=== PATIENT | male | born 1960 | race Caucasian/White ===

== ENCOUNTER 2023-10-30 20:41 | Inpatient (IN) | payer OTHER, SELFPAY ==
[2023-10-30] VITALS (12 sets, daily range): BP systolic 20–136; BP diastolic 60–84
--- NOTE | 2023-10-30 13:13 | ED.PDOC.TRB ---
ED Provider Triage
-
Patient seen by provider in Triage?: Seen in Triage
A medical screening examination has been initiated by a qualified medical provider. Based on the assessment performed at this time, it has been determined that an emergent medical condition may exist and the patient has been informed that further
medical evaluation and possible additional diagnostic testing may be needed.
HPI: This is a medical evaluation conducted in person to initiate diagnostic evaluation and provide initial therapeutics. Please see further documentation by the treating clinician.
GENERAL: Alert ,tearful
EYE: No visual abnormalities.
NECK: Trachea midline
ENT: No visible abnormalities.
LUNGS: No acute respiratory distress
Abdomen right lower quadrant pain
NEUROLOGICAL: Alert and oriented
SKIN: no visible lesions.
MUSCULOSKELETAL: Moving extremities normally
PSYCH: Normal and appropriate interaction.
63-year-old male with past medical history of type 2 diabetes presenting for right lower quadrant abdominal pain. Worsening over the past few days initially had some nausea vomiting and some loose bowel movements which has since resolved.
Reproducible tenderness right lower quadrant here concern for appendicitis CT scan ordered for further assessment.
--- NOTE | 2023-10-30 13:44 | ED.GENMED ---
History of Present Illness
General
Chief Complaint: Abdominal Pain
Source: patient and manager quality systems
Time Seen by Provider: 10/30/23 13:29
History of Present Illness
History of Present Illness:
63yoM with a history of type 2 diabetes and kidney stones presenting for evaluation of abdominal pain. Patient is Hong Konger speaking and history is provided with the assistance of an manager quality systems. Patient reports abdominal pain for the past 3 days. The
pain was initially located in the stomach region but has now migrated in the right lower quadrant. The pain is severe and worse with movement. Pain is non-radiating. He also reports chills, nausea, and diarrhea. Patient believes he has appendicitis.
He denies any vomiting, dysuria, testicular pain. No previous abdominal surgeries.
Phy Exam
Physical Exam
Physical Exam:
Rigors noted during exam
General Physical Exam
General Presentation: mild distress
General age: appears stated age
General Skin: warm and dry
General Mental: alert
General Hydration: appears well hydrated
Cardiovascular Exam
Cardiovascular Exam: regular rate/rhythm and no murmur
Pulmonary Exam
Pulmonary Exam: lungs clear, no respiratory distress, no crackles and no wheezing
Gastrointestinal Exam
Gastrointestinal Exam: soft, non distended, rebound and tender (+Significant tenderness in RLQ with rebound)
Skin Exam
Skin Exam: normal color and warm/dry
Psychiatric Exam
Psychiatric Exam: normal mood/affect
Course
Orders/Labs/Results
Orders:
Orders
10/30/23 Breakfast
NPO
Allow oral meds: Yes
Allow clear liquids: No
10/30/23 13:10
CT Abd/Pel (IV only)-DH only Urgent
Comment:
Reason For Exam: lower abd pain RLQ
Ketorolac [Toradol] 15 mg IV NOW STA
10/30/23 13:21
Complete Blood Count/With Diff Urgent
Comprehensive Metabolic Panel Urgent
Lipase Urgent
10/30/23 13:43
0.9% Sodium Chloride 1000 ml [Nss] 1,000 ml IV BOLUS
HYDROmorphone [Dilaudid] 0.5 mg IV NOW STA
10/30/23 13:52
Urinalysis Reflex To Culture Urgent
Date Specimen was Collected: 10/30/23
Time Specimen was Collected: 13:46
10/30/23 14:45
B-Hydroxybutyrate Urgent
Venous Blood Gas Urgent
%Oxygen/Room Air: room air
10/30/23 Dinner
NPO
Allow oral meds: Yes
Allow clear liquids: Sips of Clears
10/30/23 15:10
0.9% Sodium Chloride 1000 ml [Nss] 1,000 ml IV BOLUS
10/30/23 17:49
Piperacillin/Tazo 4.5 Gram [Zosyn] 4.5 gram in 100 ml IV NOW
10/30/23 18:02
Blood Culture Urgent
WARNER Source: Blood/Venous
Specimen Description:
10/30/23 18:18
Dexamethasone Sod Phosphate [Decadron] 20 mg .ROUTE .STK-MED ONE
Fentanyl Citrate/Pf [Sublimaze] 100 mcg .ROUTE .STK-MED ONE
Lidocaine HCl/Pf [Xylocaine-Mpf 1% Vial] 50 mg .ROUTE .STK-MED ONE
Ondansetron Injectable [Zofran] 4 mg .ROUTE .STK-MED ONE
Propofol [Diprivan] 20 ml .ROUTE .STK-MED
Rocuronium [place] [Rocuronium] 50 mg .ROUTE .STK-MED ONE
10/30/23 18:19
Blood Culture Routine
WARNER Source: Blood/Venous
Specimen Description:
Midazolam HCl [Versed] 2 mg .ROUTE .STK-MED ONE
10/30/23 18:35
Admit/Transfer Patient As Directed
Co-Sign Provider:
Level of Care: Inpatient admission
Assign to:: Telemetry
Physician / Group: adri
Diagnosis: sepsis
Reason for Telemetry: Other
Other Reason for Telemetry: sepsis
Date to Stop Telemetry: 11/01/23
Time to Stop Telemetry: 11:00
Reason for Hospitalization: sepsis
Expected length of stay greater than two midnights?: Yes
ELOS- Estimated Length of Stay in days: 3
I certify the patient meets the requirements for IP care: Yes
PRN Pain Medication Management As Directed
May give lesser potent ordered pain med per pt: Yes
preference::
Protocol:: Medication orders for pain may be administered in a
manner that supports deferring to patient preference
when the pt is:
- Requesting an ordered lesser potent pain medication.
Least to most potent pain medications are defined
as: acetaminophen < NSAID < tramadol < opioids
(morphine, oxycodone, hydromorphone).
- Requesting a lesser dose of the same medication IF
ORDERED.
- Requesting a less intrusive route of administration
if both routes are prescribed by the provider (PO <
IV).
10/30/23 18:36
Code Status As Directed
Resuscitation Status: Full Code
10/30/23 18:37
Bupivacaine 0.25%Pf/Epinephrin [Sensorcaine-Epi 0.25%-0.0005] 30 ml .ROUTE .STK-MED ONE
10/30/23 18:38
HYDROmorphone [Dilaudid] 0.25 mg IV PACU-Q5MPRN PRN
HYDROmorphone [Dilaudid] 0.5 mg IV PACU-Q5MPRN PRN
Meperidine [Demerol] 12.5 mg IV PACU-Q5MPRN PRN
Ondansetron Injectable [Zofran] 4 mg IV PACU-ONCEPRN PRN
Prochlorperazine [Compazine] 5 mg IV PACU-ONCEPRN PRN
Notify MD As Directed
Notify physician if: for SDS patients with known or suspected sleep obstructive sleep apnea, monitor in the
PACU.
Notify MD for any apneic/desaturation episodes
O2 Therapy [RESP] Urgent
Titrate/Wean O2 to maintain O2 sat greater than (%): 92
Special Instructions: -Provide supplemental oxygen to achieve O2 sat of 92% or greater.
-After 15 min, may wean O2 and discontinue if patient is able to maintain O2 sat of 92%
or greater during recovery period.
If patient is a discharge home, without oxygen therapy, notify anestheiologist if
unable to maintain O2 SAT of 92% or greater on room air for MD clearance.
10/30/23 18:45
Normosol (Mult Electrolytes) [Normosol-R] 1,000 ml IV PER PROTOCOL
10/30/23 19:00
Normosol (Mult Electrolytes) [Normosol-R] 1,000 ml IV PER PROTOCOL
10/30/23 19:12
HYDROmorphone [Dilaudid] 0.5 mg IV Q2HPRN PRN
Ketorolac [Toradol] 10 mg IV Q6HPRN PRN
Ondansetron Injectable [Zofran] 4 mg IV Q6HPRN PRN
Activity As Directed
Activity Level: Ambulate
Drains As Directed
Type: Kapil Connelly
To suction: Yes: Bulb
Intake/ Output As Directed
Frequency: Per unit guidelines
Pneumatic Compression Sleeves As Directed
Type: Knee high
Vital Signs As Directed
Frequency: Per unit guidelines
DX Deep Vein Thrombosis Video Routine
10/30/23 19:13
Rx Incentive Spirometry [RESP] Routine
Frequency: q1h while awake
# of times per hour: 10
10/30/23 19:15
Normosol (Mult Electrolytes) [Normosol-R] 1,000 ml IV 125 mls/hr
Normosol (Mult Electrolytes) [Normosol-R] 1,000 ml IV 125 mls/hr
10/30/23 19:34
HYDROmorphone [Dilaudid] 0.25 mg IV PACU-Q5MPRN PRN
HYDROmorphone [Dilaudid] 0.5 mg IV PACU-Q5MPRN PRN
HYDROmorphone [Dilaudid] 0.5 mg IV Q2HPRN PRN
Ketorolac [Toradol] 10 mg IV Q6HPRN PRN
Meperidine [Demerol] 12.5 mg IV PACU-Q5MPRN PRN
Ondansetron Injectable [Zofran] 4 mg IV PACU-ONCEPRN PRN
Ondansetron Injectable [Zofran] 4 mg IV Q6HPRN PRN
Prochlorperazine [Compazine] 5 mg IV PACU-ONCEPRN PRN
10/30/23 19:35
Insulin Human Regular [Novolin R] 100 units .ROUTE .STK-MED ONE
10/30/23 19:59
OR Pathology Routine
Pre-Operative Diagnosis: RUPTURED APPENDICITIS
Post-Operative Diagnosis: RUPTURED APPENDICITIS
Operative Procedure: LAPAROSCOPIC APPENDECTOMY
Surgeon: ADAM MARINO
Circulating Nurse: CAL MARADIAGA
Specimen Type: APPENDIX
10/30/23 20:00
Acetaminophen [Tylenol] 650 mg PO Q4HWA
Acetaminophen [Tylenol] 650 mg PO Q4HWA
Piperacillin/Tazo 3.375 Gram [Zosyn] 3.375 gram in 50 ml IV Q6H
Piperacillin/Tazo 3.375 Gram [Zosyn] 3.375 gram in 50 ml IV Q6H
10/30/23 20:25
Insulin Human Regular [Novolin R] 100 units .ROUTE .STK-MED ONE
10/30/23 20:27
Propofol [Diprivan] 20 ml .ROUTE .STK-MED
10/30/23 20:43
0.9% Sodium Chloride 1000 ml [Nss] 1,000 ml IV 80 mls/hr
Acetaminophen [Tylenol/Feverall] 650 mg RECTAL Q4HPRN PRN
Acetaminophen [Tylenol] 650 mg PO Q4HPRN PRN
Cefepime HCl [Maxipime] 2,000 mg IV Q8H
Dextrose 50%-Water [Dextrose 50% Syringe] 12.5 grams IV [id number] PRN
Glucagon [GlucaGen] 1 mg IM PRN PRN
MetroNIDAZOLE 500 MG/100 ML [Flagyl 500 mg] 100 ml IV Q8H
10/30/23 20:43
INFECTIOUS DISEASE CONSULT Routine
Consulting Provider: Jason Mckeon
Was physician already notified: Yes
SURGICAL CONSULT Routine
Consulting Provider: Adam Marino
Was physician already notified: Yes
UROLOGY CONSULT Routine
Consulting Provider: Antonio Shepherd
Was physician already notified: Yes
Activity As Directed
Activity Level: As Tolerated
Bedside Glucose Monitoring As Directed
Frequency: AC&HS
Additional Instructions:: Change to q6h if pt on TPN, tube feeding or not eating
Intake/ Output As Directed
Frequency: Per unit guidelines
Venous Foot Pumps As Directed
Location: Bilateral feet
Vital Signs As Directed
Frequency: Per unit guidelines
DX Deep Vein Thrombosis Video Routine
10/31/23 06:00
Complete Blood Count/No Diff IN AM
Glycohemoglobin (HgbA1c) IN AM
10/31/23 07:30
Insulin Aspart Corrective Low [Novolog Flexpen-Low Resistance] See Protocol SC AC
10/31/23 08:00
Tamsulosin [Flomax] 0.4 mg PO DAILY
10/31/23 18:00
Enoxaparin Sodium [Lovenox] 40 mg SC QPM
Enoxaparin Sodium [Lovenox] 40 mg SC QPM
11/01/23 06:00
Complete Blood Count/No Diff IN AM
11/01/23 11:00
DC Protocol for Telemetry ONCE
11/02/23 06:00
Complete Blood Count/No Diff IN AM
11/03/23 06:00
Complete Blood Count/No Diff IN AM
11/04/23 06:00
Complete Blood Count/No Diff IN AM
Abnormal Lab Results
10/30/23 10/30/23 10/30/23
13:21 13:52 14:45
WBC 15.4 H 10^3/uL
(4.8-10.8)
MCH 32.2 H pg
(27.0-31.0)
Abs Immat Gran (auto) 0.1 H 10^3/uL
(0-0.05)
Absolute Neuts (auto) 12.3 H 10^3/uL
(1.4-6.5)
Absolute Monos (auto) 1.0 H 10^3/uL
(0.1-0.6)
Neutrophils % 79.8 H %
(42.2-75.2)
Lymphocytes % 12.9 L %
(20.5-51.1)
VBG pH 7.29 L
(7.32-7.43)
VBG pO2 55 H mmHg
(30-50)
VBG HCO3 18.8 L mmol/L
(22-27)
Carbon Dioxide 19 L mmol/L
(22-30)
BUN 29 H mg/dl
(9-20)
Glucose 246 H mg/dl
(70-99)
Total Bilirubin 3.4 H mg/dl
(0.2-1.3)
Urine Ketones 3+ A
(Negative)
Urine Glucose 3+ A
(Negative)
B-Hydroxybutyrate 2.51 H mmol/L
(0.02-0.27)
POC Glucose
10/30/23
19:42
WBC
MCH
Abs Immat Gran (auto)
Absolute Neuts (auto)
Absolute Monos (auto)
Neutrophils %
Lymphocytes %
VBG pH
VBG pO2
VBG HCO3
Carbon Dioxide
BUN
Glucose
Total Bilirubin
Urine Ketones
Urine Glucose
B-Hydroxybutyrate
POC Glucose 134 H mg/dl
(70-99)
10/30/23 13:21
10/30/23 13:21
Vital Signs
Initial and Last Documented VS:
Initial Vital Signs
Temp Pulse Resp BP Pulse Ox
98.4 F 104 18 136/84 96
10/30/23 13:10 10/30/23 13:10 10/30/23 13:10 10/30/23 13:10 10/30/23 13:10
Last Documented Vital Signs
Temp Pulse Resp BP Pulse Ox
102.2 F H 104 18 134/75 94
10/30/23 18:28 10/30/23 13:10 10/30/23 18:34 10/30/23 18:34 10/30/23 18:34
MDM/Problems Addressed
Differential Diagnosis Includes:
63yoM here with RLQ pain x 2 days. Associated with chills, nausea, diarrhea. He is afebrile and hemodynamically stable. Rigors noted during exam. There is rebound tenderness on abdominal exam. Differential diagnosis includes but is not limited to:
appendicitis, colitis, diverticulitis, kidney stone
Initial ED plan: Check abdominal labs, UA, and CT abdomen. IV Toradol, Dilaudid, and fluid bolus for symptoms.
*Critical Care Note
Total Time (30-74mins, 75-104mins- exclusive of procedures): Not Applicable
Update Note
Update Note:
Temperature 100.8 on recheck. White count is 15.4. Glucose 246. Bicarb is 19 and 3+ ketones in urine. VBG added and venous pH 7.29. Additional fluid bolus added.
CT abdomen shows perforated appendicitis with small volume pneumoperitoneum. There is also an 8mm L ureteral stone with hydronephrosis. No overt signs of infection on urinalysis. Blood cultures and IV Zosyn ordered. Case was discussed with both
urology and general surgery. Per urology, the ureteral stone appears chronic which is typically managed electively especially since he is not having L sided symptoms. General surgery to perform appendectomy tonight. He was admitted to the
hospitalist service for further management.
ED Attending Note
-
Portions of this chart may have been created with voice recognition software.� Occasional wrong word or��sound alike� substitutions may have occurred due to the inherent limitations of voice recognition software.
Discharge Plan
Departure
Patient Disposition: Admit
Date of Disposition: 10/30/23
Time of Disposition: 18:25
Presentation/result/management discussed w/ accepting MD/DO: Hospitalist
Discharge Problem:
Acute perforated appendicitis, Left ureteral calculus
Interventions
Interventions:
*Risk Screen - Suicide Last Done: 10/30/23 13:12
*General Assessment Last Done: 10/30/23 13:12
*Neglect/Abuse Screening Last Done: 10/30/23 13:12
ED- Fall Risk Assessment Last Done: 10/30/23 19:00
*ED COVID-19 Vaccine History Last Done: 10/30/23 19:00
*Nursing Disposition Last Done: 10/30/23 19:00
JS-Gyuheb-Kbzbmldqls Assessment Last Done: 10/30/23 18:29
Discharge Date and Time
Discharge Date/Time: 10/30/23 19:00
[2023-10-30 14:02] LABS: Urine Albumin Negative (Neg - Trace); Urine Bilirubin Negative (Negative); Urine Character Clear (Clear); Urine Color Yellow; Urine Glucose 3+ (Negative); Urine Ketone 3+ (Negative); Urine Leukocyte Negative (Negative); Urine Nitrite Negative (Negative); Urine Occult Blood Negative (Negative); Urine Urobilinogen Negative (Neg - 1+)
[2023-10-30] MEDS: NSS 1000 IV ×2 (14:03→15:21)
[2023-10-30] MEDS: TORADOL 15 MG IV (14:03)
[2023-10-30] MEDS: DILAUDID 0.5 MG IV (14:04)
[2023-10-30 14:13] LABS: % Basophils 0.3 % (0-2); % Immature Granulocytes 0.4 % (0-0.5); % Lymphocytes 12.9 % (20.5-51.1); % Monocytes 6.6 % (1.7-9.3); % Neutrophils 79.8 % (42.2-75.2); Absolute Basophils 0.1 10^3/uL (0-0.2); Absolute Immature Granulocytes 0.1 10^3/uL (0-0.05); Absolute Neutrophils 12.3 10^3/uL (1.4-6.5); Hematocrit 47.2 % (39.0-52.0); Hemoglobin 16.7 g/dL (13.0-18.0); Mean Corp Hgb Conc. 35.4 g/dL (33.0-37.0); Mean Corpuscular Hgb 32.2 pg (27.0-31.0); Mean Corpuscular Volume 90.9 fL (80.0-94.0); Mean Platelet Volume 9.8 fL (7.4-10.4); Nucleated Red Blood Cells % 0 % (-); Platelet Count 205 10^3/uL (130-400); Red Blood Cell Count 5.19 10^6/uL (4.70-6.10); Red Cell Dist. Width 13.1 % (11.5-14.5); White Blood Cell Count 15.4 10^3/uL (4.8-10.8)
[2023-10-30 14:30] LABS: AST (SGOT) 48 U/L (17-59); Albumin 4.9 g/dl (3.5-5.0); Alkaline Phosphatase 56 U/L (38-126); Blood Urea Nitrogen 29 mg/dl (9-20); Calcium 9.8 mg/dl (8.4-10.2); Carbon Dioxide 19 mmol/L (22-30); Chloride 98 mmol/L (98-107); Glucose 246 mg/dl (70-99); Lipase 66 U/L (23-300); Potassium 4.6 mmol/L (3.5-5.1); Sodium 139 mmol/L (135-145); Total Bilirubin 3.4 mg/dl (0.2-1.3); Total Protein 7.7 g/dl (6.3-8.2); eGFR > 60.00
[2023-10-30 14:49] LABS: ALT (SGPT) 36 U/L (0-50)
[2023-10-30 14:58] LABS: Venous Blood Gas B.E. -7.3 mmol/L (-4 to +4); Venous Blood Gas HCO3 18.8 mmol/L (22-27); Venous Blood Gas O2 Sat % 82.4 %; Venous Blood Gas pCO2 39 mmHg (35-48); Venous Blood Gas pH 7.29 (7.32-7.43); Venous Blood Gas pO2 55 mmHg (30-50)
[2023-10-30 14:59] LABS: Venous Blood Gas O2 Therapy room air
[2023-10-30 15:22] LABS: B-Hydroxybutyrate 2.51 mmol/L (0.02-0.27)
--- NOTE | 2023-10-30 18:27 | HPS.HSE ---
Family Physician
-
Family Physician: Benjamín Avelar
Chief Complaint
-
Abdominal pain
History of Present Illness
63yoM with a history of type 2 diabetes and kidney stones presenting for evaluation of abdominal pain. reports right sided abdominal pain since last week. since Saturday it got worse. stated chills, nausea and diarrhea. denied n/v. denied fever.
denied chest pain, sob. denied dysuria or hematuria.
CT with Findings consistent with perforated appendicitis with small volume pneumoperitoneum. There is no discrete periappendiceal collection.
8 mm obstructing stone within the distal left ureter with associated left-sided hydronephrosis.
admitting for further management.
Medical History
Past Medical History
Past Medical History: Reports Other
Additional Past Medical History:
Type 2 diabetes
Past Surgical History: Reports None
Social History
Tobacco: Non-smoker
Alcohol: None
Drug: None
Personal:
Living: With Family
Family History
Family History: Not pertinent
Allergies / Home Medications
Allergies reflects when Allergies were last updated in [employer].
Home Medications with original date entered in [employer]
Allergy/Medication List:
Allergies
Allergy/AdvReac Type Severity Reaction Status Date / Time
No Known Allergies Allergy Unverified 10/30/23 13:10
Review of Systems
-
Constitutional: Reports Fever and Chills
EENT: Reports No Symptoms
Respiratory: Reports No Symptoms
Cardiac: Reports No Symptoms
Abdomen/GI: Reports Abdominal Pain
: Reports No Symptoms
Musculoskeletal: Reports No Symptoms
Skin: Reports No Symptoms
Neurological: Reports No Symptoms
Endocrine: Reports No Symptoms
Hematologic/Lymphatic: Reports No Symptoms
Psych: Reports No Symptoms
Physical Exam
Vital Signs
Vital Signs
Temp Pulse Resp BP Pulse Ox
100.8 F H 104 18 136/84 96
10/30/23 14:00 10/30/23 13:10 10/30/23 13:10 10/30/23 13:10 10/30/23 13:10
Physical Exam
General: Well Developed, Well Nourished and No Apparent Distress
HEENT: NormoCephalic, Moist mucous membranes and Atraumatic
Respiratory: Clear
Cardiac: S1/S2 and Regular Rhythm; No Murmur or Rub
GI: Soft, Non Distended, Normal Bowel Sounds and Tender; No Organomegaly
Rectal: Deferred by Provider
Musculoskeletal: No Clubbing, No Cyanosis and No Edema
Skin: No Rash
Neuro: AO x 3 and Nonfocal/grossly intact
Psych: Calm
Laboratory Results
-
10/30/23 13:21
10/30/23 13:21
Laboratory Results
Total Bilirubin 3.4 mg/dl (0.2-1.3) H 10/30/23 13:21
AST 48 U/L (17-59) 10/30/23 13:21
ALT 36 U/L (0-50) 10/30/23 13:21
Alkaline Phosphatase 56 U/L (38-126) 10/30/23 13:21
Lipase 66 U/L (23-300) 10/30/23 13:21
Data Reviewed
-
CT Scan: Report Reviewed by me
Lab Data: Labs Reviewed by me
Impression/Plan
-
# Right lower quadrant pain associated fever and chills likely from perforated appendicitis/ureteral stones
# Sepsis as evident by WBC of 15.4, temp 102.2, heart rate 104
-UA negative
-CT Abdo pelvis with impression of Findings consistent with perforated appendicitis with small volume pneumoperitoneum. There is no discrete periappendiceal collection.8 mm obstructing stone within the distal left ureter with associated left-sided
hydronephrosis.
-Blood culture sent from ER
-IV Flagyl and cefepime
-Keep patient n.p.o.
-Fluids continued
-urology/surgery consulted
#type 2 Dm
-sliding scale
-hold Jardiance glimepiride and Trulicity.
# DVT prophylaxis
-SCDs
# CODE STATUS
-Full code
[2023-10-30] MEDS: ZOSYN 100 IV (18:32)
--- NOTE | 2023-10-30 19:00 | CON.GS ---
Medical History
-
Chief Complaint: RLQ pain
History of Present Illness:
Patient is a 63 yo M with a PMH of obesity, NIDDM, BPH, and recurrent nephrolithiasis who presents with several days of RLQ abdominal pain. Patient is Lao-speaking only and mat linker was used for the encounter. He states that his severe pain
began on Saturday. Upon further prompting he reports that he had intermittent discomfort for the preceding several days into last week. Currently describes severe RLQ abdominal pain as well as some more generalized abdominal pain. Fevers and
chills. Nausea, but no vomiting. She reports looser nonbloody stools. Recent colonoscopy within the last 5 years reported to be normal.
Past Medical History
Past Medical History: NIDDM and Other (Obesity, recurrent nephrolithiasis, BPH)
Past Surgical History: None
Social History
Tobacco: Non-Smoker
Alcohol: None
Drug: None
Personal:
Living: With Family
Family History
Family History: Reviewed & Noncontributory
Allergies / Home Medications
Allergy/AdvReac Type Severity Reaction Status Date / Time
No Known Allergies Allergy Unverified 10/30/23 13:10
�Medication �Instructions �Recorded �Confirmed �Type
dulaglutide 0.75 mg/0.5 mL 0.5 mg SC WEEKLY 10/30/23 10/30/23 History
subcutaneous pen injector
(Trulicity)
empagliflozin 25 mg tablet 25 mg PO DAILY 10/30/23 10/30/23 History
(Jardiance)
glimepiride 2 mg tablet 2 mg PO BID 10/30/23 10/30/23 History
tamsulosin 0.4 mg capsule 0.4 mg PO DAILY 10/30/23 10/30/23 History
Review of Systems
-
A 10 point review of systems was completed, and was negative except as per HPI.
Physical Exam
Vital Signs
Temp Pulse Resp BP Pulse Ox
102.2 F H 104 18 134/75 94
10/30/23 18:28 10/30/23 13:10 10/30/23 18:34 10/30/23 18:34 10/30/23 18:34
10/29/23 10/30/23 10/31/23
06:59 06:59 06:59
Actual Weight 93 kg
Lab Results
10/30/23 13:21
10/30/23 13:21
WBC 15.4 10^3/uL (4.8-10.8) H 10/30/23 13:21
Hgb 16.7 g/dL (13.0-18.0) 10/30/23 13:21
Hct 47.2 % (39.0-52.0) 10/30/23 13:21
Plt Count 205 10^3/uL (130-400) 10/30/23 13:21
Abs Immat Gran (auto) 0.1 10^3/uL (0-0.05) H 10/30/23 13:21
Neutrophils % 79.8 % (42.2-75.2) H 10/30/23 13:21
Physical Exam
General: Well Developed, Well Nourished and Pain
HEENT: Normocephalic and Anicteric
Respiratory: Non Labored Respirations
Cardiac: Regular Rhythm
GI: Soft, Non Distended, Tender (RLQ) and Other (Peritoneal (rebound and guarding))
Musculoskeletal: No Edema
Skin: Warm and Dry
Neuro: Nonfocal/Grossly Intact
Data Reviewed
-
CT Scan: Image Personally Visualized and interpreted and Report Reviewed by me
Labs: Labs Reviewed by me
Assessment / Plan
-
Patient is a 63 yo M p/w perforated appendicitis
CT demonstrates perforated appendicitis with small localized free air, no abscess or phlegmonous collection. The natural history and pathophysiology of appendicitis was discussed. CT scan imaging as a relates to his appendix was discussed.
Options for management including medical management with antibiotics and likely potential need for repeat CT scan imaging and drainage versus surgical management with appendectomy were considered and discussed. The pros and cons of both approaches
was discussed. Specifically, we discussed failure of medical management, worsening sepsis, future episodes of appendicitis versus surgical risks. Recommend surgical management.
Plan for laparoscopic possible open appendectomy. The procedure itself, as well as the risks, benefits, and alternatives was discussed. Specifically, we discussed the risks of bleeding, infection, injury to surrounding structures (bowel, bladder),
staple line leak, need for open procedure. Of note, we specifically discussed that he is at increased risk for deep space infections given the perforated nature of his appendicitis. We discussed the need for postoperative antibiotics and potential
drain placement. Typical postprocedure recovery was discussed. All questions answered. Consent signed.
-- Laparoscopic possible open appendectomy
-- NPO, IVF
-- Antibiotics: Zosyn
-- Pain control: Tylenol and IV Dilaudid as needed
-- Admit to Hospitalist given medical comorbidities
--- NOTE | 2023-10-30 19:09 | W.SUR.PREOP ---
Pre-Operative Surgical Note
-
I have examined this patient prior to the performance of the scheduled procedure.
The patient's condition is unchanged from the time of the current History and
Physical and the patient is able to undergo the scheduled procedure.
[2023-10-30 19:43] LABS: Glucose - Point of Care 134 mg/dl (70-99)
--- NOTE | 2023-10-30 20:50 | W.IMMPOSTOP ---
Surgical Immed Post Op Note
-
Primary Surgeon: Martha
Assisting Surgeon: None
Pre-op Diagnosis: Perforated appendicitis
Post-op Diagnosis: Perforated appendicitis
Procedure Performed: Laparoscopic appendectomy, drainage of intra-abdominal abscess
Anesthesia Type: General
Specimen / Cultures:
1. Appendix
Estimated Blood Loss: 7 cc
Complications: None
Operative Findings:
1. Gangrenous and necrotic appendix, perforation just distal to base, localized stool contamination, fibrinous adhesions to small bowel
2. Mesentery taken with Voyant, base with Endoloop x2, appendix removed piecemeal
3. 19 Fr Edwin into pelvis and RLQ
Plan:
-- Monitor for ileus
-- Abx for 14 days post-op
-- FLAKITO drain for at least 2 days, possible removal prior to DC if clear
-- DC POD#2 at the earliest pending infectious control, diabetes control, and diet
[2023-10-30 20:58] LABS: Glucose - Point of Care 151 mg/dl (70-99)
[2023-10-30] MEDS: NORMOSOL-R/PLASMALYTE-A 1000 IV ×2 (21:31→23:51)
--- NOTE | 2023-10-30 21:34 | W.PN.UPDATE ---
Update Note
Progress Note Update
This note serves as an addendum to the H&P by AYESHA Whitehead, on October 30, 2023.
History of Presenting Illness
63 y/o male with past medical history of type 2 diabetes and kidney stones presented for evaluation of right-sided abdominal pain. The pain has been there for about a week but a couple of days ago, it started to get worse. He reported chills, nausea
and diarrhea.
CT with Findings, as per radiologist's report, consistent with perforated appendicitis with small volume pneumoperitoneum. There is no discrete periappendiceal collection.
8 mm obstructing stone within the distal left ureter with associated left-sided hydronephrosis.
Vital Signs
Febrile up to 102.2 F
Tachycardic to low 100s bpm
BP okay
RR okay
Saturating oxygen on room air at the time of admission
Physical Exam
General: Well Developed, Well Nourished and No Apparent Distress
HEENT: Normocephalic, Moist mucous membranes and Atraumatic
Respiratory: Clear
Cardiac: S1/S2 and Regular Rhythm; Tachycardia
GI: Soft, Non Distended, Normal Bowel Sounds and Tender
Musculoskeletal: No Cyanosis and No Edema
Skin: Warm. Dry.
Neuro: AAO x 3 and Nonfocal/grossly intact
Psych: Calm
Assessment/Plan
# Right lower quadrant pain associated fever and chills likely from perforated appendicitis
# Sepsis with leukocytosis, fever and tachycardia
-UA negative
-Blood culture sent from ER
-IV Zosyn
-Surgery today
-Keep patient n.p.o. until surgery allows for a diet
-IV Fluids continued
-ID consulted, appreciate evaluation and recommendations
-Surgery consulted, appreciate evaluation and recommendations
#Distal Left Ureter Stone with associated left-sided hydronephrosis
-Urology consulted, appreciate evaluation and recommendations
#Type 2 Diabetes Mellitus
-sliding scale
-hold Jardiance glimepiride and Trulicity.
# DVT prophylaxis
-SCDs
# CODE STATUS
-Full code
[2023-10-30] MEDS: TYLENOL PO (23:34)
[2023-10-30] MEDS: TYLENOL 650 MG PO (23:47)
[2023-10-30] MEDS: ZOSYN 50 IV (23:48)
[2023-10-30 23:58] LABS: Glucose - Point of Care 168 mg/dl (70-99)
[2023-10-31] VITALS (8 sets, daily range): BP systolic 97–118; BP diastolic 55–68; BMI 29.6
--- NOTE | 2023-10-31 00:56 | PTCARENOTE ---
Pt received from PACU at 2200. Pt AAOX3, VSS, and absent of pain. Pt pulled over into bed. Pt receptive to room, urinal, and callbell. Will continue with current plan of care.
[2023-10-31] MEDS: TYLENOL PO ×2 (04:05→23:50)
[2023-10-31 05:54] LABS: Glucose - Point of Care 177 mg/dl (70-99)
[2023-10-31] MEDS: ZOSYN 50 IV ×4 (06:30→23:46)
[2023-10-31] MEDS: NOVOLOG FLEXPEN-LOW RESISTANCE 1 UNITS SC ×2 (06:35→12:57)
[2023-10-31 07:44] LABS: Hematocrit 38.6 % (39.0-52.0); Hemoglobin 13.7 g/dL (13.0-18.0); Mean Corp Hgb Conc. 35.5 g/dL (33.0-37.0); Mean Corpuscular Hgb 33.2 pg (27.0-31.0); Mean Corpuscular Volume 93.5 fL (80.0-94.0); Mean Platelet Volume 10.7 fL (7.4-10.4); Platelet Count 163 10^3/uL (130-400); Red Blood Cell Count 4.13 10^6/uL (4.70-6.10); Red Cell Dist. Width 13.2 % (11.5-14.5); White Blood Cell Count 16.6 10^3/uL (4.8-10.8)
[2023-10-31 08:54] LABS: Glycohemoglobin (HgbA1c) 7.9 % (4.0-5.6)
[2023-10-31] MEDS: FLOMAX 0.4 MG PO (09:10)
[2023-10-31] MEDS: TYLENOL 650 MG PO ×4 (09:10→20:03)
--- NOTE | 2023-10-31 11:10 | W.PN.GS2 ---
Today's Communication / Plan
-
CLD
Assessment / Plan
-
63M POD1 s/p laparoscopic appendectomy and drainage of intra-abdominal abscess for perforated appendicitis
No further fevers since OR
Bowel function returning
Still at risk for ileus
Plan:
Start clears
Cont abx
PRN pain meds and antiemetics
Ambulate
DVT ppx
Subjective Data
-
Date of Service: October 31, 2023
No fevers since preop, feeling welln this am, passing flatus, denies n/v, pain controlled
Objective Data
-
Intake and Output
10/30/23 10/31/23 11/01/23
06:59 06:59 06:59
Intake Total 100 / 100
Output Total 1300 / 1300
Balance -1200 / -1200
Intake:
IV fluids (Total) 100 / 100
normosol 100 / 100
Output:
Drain Output (Total) 100 / 100
Left Kapil-Connelly 100 / 100
Urine, Voided 1200 / 1200
Vital Signs
Temp Pulse Resp BP Pulse Ox
98.1 F 75 18 116/61 96
10/31/23 07:00 10/31/23 07:00 10/31/23 07:00 10/31/23 07:00 10/31/23 07:00
Lab Results
10/31/23 05:38
10/30/23 13:21
Calcium 9.8 mg/dl (8.4-10.2) 10/30/23 13:21
Total Bilirubin 3.4 mg/dl (0.2-1.3) H 10/30/23 13:21
AST 48 U/L (17-59) 10/30/23 13:21
ALT 36 U/L (0-50) 10/30/23 13:21
Alkaline Phosphatase 56 U/L (38-126) 10/30/23 13:21
Total Protein 7.7 g/dl (6.3-8.2) 10/30/23 13:21
Albumin 4.9 g/dl (3.5-5.0) 10/30/23 13:21
Physical Exam
-
Gen: NAD
Abd: soft, approp ttp, incisions cdi, drain ss
--- NOTE | 2023-10-31 11:20 | CON.ID ---
Addendum entered and electronically signed by Jason Mckeon DO 10/31/23 13:04:
I personally performed a history and physical exam of the patient and discussed management with the resident. I reviewed the resident's note and agree with the documented findings and plan of care HPI/CC.
Impression :
Intra-abdominal abscess
Acute appendicitis with perforation
- T-max of 102.2 F on 10-30-23; afebrile since.
- Tachycardia resolved; leukocytosis stable.
- Status-post laparoscopic appendectomy, drainage of intra-abdominal abscess on 10-30-23.
Type II diabetes mellitus
Benign prostatic hyperplasia
Recommendations:
- Continue with piperacillin-tazobactam (day #2).
- Send FLAKITO drain fluid for culture today.
- Follow WBC / temp curve.
- Continue with supportive measures.
Continue with Zosyn for today.
No intraoperative cultures appear to have been sent. Will order culture from FLAKITO drain to assess for any resistant organisms.
Continue to monitor white count and temperature curve.
Monitor drain output.
Original Note:
Consultation
-
Date/Time Consultation Requested: 10-31-23
Date/Time Consultation Performed: 10-31-23
Requesting Provider: Radha Ron
Performing Provider: Dr. Mckeon
Reason for Consultation: intra-abdominal abscess from perforated appendicitis
Chief Complaint / Past History
Chief Complaint
abdominal pain
History of Present Illness
Chris Honeycutt, age 63, came to the emergency with right sided abdominal pain on 10-30-23. He has had this pain since at least 10-27 and kept getting progressively worse. Also complained of chills, nausea and diarrhea. CT AP in the ED was consistent
with perforated appendicitis with small volume pneumoperitoneum, and underwent a laparoscopic appendectomy, drainage of intra-abdominal abscess on 10-30-23. He was started on piperacillin+tazobactam. The patient speaks Burundian and a certified
merchandising director was used using video call.
Past History
Past Medical History: Other (type II diabetes mellitus)
Past Surgical History: None
Allergy History:
No Known Allergies Allergy (Unverified 10/30/23 13:10)
Medications Reviewed: Yes
Social History
Tobacco: Non-Smoker
Alcohol: None
Drug: None
Personal:
Living: With Family
Family History
Family History: Not Pertinent
Review of Systems
Review of Systems
General: Negative Fever or Chills
Cardiovascular: Negative Chest Pain or Palpitations
Respiratory: Negative Dyspnea or Cough
Gasteroenterology: Other (abdominal pain - significantly improved since yesterday); Negative Nausea or Vomiting
Endocrine: Negative Weakness or Fatigue
Vital Signs
Temp Pulse Resp BP Pulse Ox
98.1 F 75 18 116/61 96
10/31/23 07:00 10/31/23 07:00 10/31/23 07:00 10/31/23 07:00 10/31/23 07:00
Physical Exam
Physical Exam
Constitutional: No Acute Distress and Comfortable
Head: Normocephalic
Pharynx: Benign
Cardiovascular: Regular Rate and S1/S2
Pulmonary: Clear and Non Labored
Gastrointestinal: Soft, Tender (diffusely) and Non Distended
Extremities: Negative Edema, Clubbing or Cyanosis
Skin: Warm and Dry
Neurological: Awake, Alert, Oriented and No Motor Deficits
Psychological: Calm
Lab / Diagnostic Study Results
10/31/23 05:38
10/30/23 13:21
Abs Immat Gran (auto) 0.1 10^3/uL (0-0.05) H 10/30/23 13:21
Absolute Neuts (auto) 12.3 10^3/uL (1.4-6.5) H 10/30/23 13:21
Absolute Lymphs (auto) 2.0 10^3/uL (1.2-3.4) 10/30/23 13:21
Absolute Monos (auto) 1.0 10^3/uL (0.1-0.6) H 10/30/23 13:21
Absolute Basos (auto) 0.1 10^3/uL (0-0.2) 10/30/23 13:21
Immature Gran % 0.4 % (0-0.5) 10/30/23 13:21
Neutrophils % 79.8 % (42.2-75.2) H 10/30/23 13:21
Lymphocytes % 12.9 % (20.5-51.1) L 10/30/23 13:21
Monocytes % 6.6 % (1.7-9.3) 10/30/23 13:21
Eosinophils % 0.0 % (0-6) 10/30/23 13:21
Basophils % 0.3 % (0-2) 10/30/23 13:21
Microbiology Results
Micro:
10/31/23 00:37 Blood Culture - Pending
Blood/Venous
10/30/23 18:02 Blood Culture - Pending
Blood/Venous
Assessment / Plan
Intra-abdominal abscess
Acute appendicitis with perforation
- T-max of 102.2 F on 10-30-23; afebrile since.
- Tachycardia resolved; leukocytosis stable.
- Status-post laparoscopic appendectomy, drainage of intra-abdominal abscess on 10-30-23.
- Continue with piperacillin-tazobactam (day 2).
- Send FLAKITO drain fluid for culture today.
Conditions prior to presentation:
Type II diabetes mellitus
Benign prostatic hyperplasia
[2023-10-31 12:42] LABS: Glucose - Point of Care 183 mg/dl (70-99)
[2023-10-31] MEDS: NORMOSOL-R/PLASMALYTE-A 1000 IV ×2 (12:55→21:39)
--- NOTE | 2023-10-31 13:21 | CM ---
Patient seen bedside, initial assessment completed with Language Line [place]ian physician general internal medicine. Patient resides with his in a rental apartment. Patient denies DME, VN, or SNF history. Patient confirms PCP Dr. Avelar, pharmacy [place], confirms prescription coverage through insurance. CM discussed consult for Advanced Directive, patient not interested at this time. Patient reports will be visiting patient shortly. Patient inquiring if he can have anything
to drink, passed along to nurse. CM will continue to follow for all discharge planning needs.
Plan; home no needs likely.
--- NOTE | 2023-10-31 16:57 | W.PN.URO.CBU ---
Today's Communication / Plan
-
Will advise stone surgery after patient has recovered from this hospitalization
There are no indications for urgent intervention at this time
Assessment / Plan
-
Asymptomatic 8mm partially obstructing left distal ureteral stone
Diagnosis
-
Date of Service: October 31, 2023
-
Patient Diagnosis:
Asymptomatic 8mm partially obstructing left distal ureteral calculus with associated moderate left hydroureteronephrosis: likely chronic
---
Acute/perforated appendicitis s/p laparoscopic appendectomy with drain placement 10/31/23
Subjective
-
No dysuria
No left flank pain
Objective
-
Vital Signs
Temp Pulse Resp BP Pulse Ox
99.3 F 67 16 118/65 98
10/31/23 15:40 10/31/23 15:40 10/31/23 15:40 10/31/23 15:40 10/31/23 15:40
Intake and Output
10/30/23 10/31/23 11/01/23
06:59 06:59 06:59
Intake Total 100 / 100
Output Total 1300 / 1300
Balance -1200 / -1200
Intake:
IV fluids (Total) 100 / 100
normosol 100 / 100
Output:
Drain Output (Total) 100 / 100
Left Kapil-Connelly 100 / 100
Urine, Voided 1200 / 1200
Laboratory Results
10/31/23 05:38
10/30/23 13:21
CT scan 10/30/23 personally reviewed
Review of Systems
-
Unable to obtain full review of systems at this time due to: Language Barrier
Physical Exam
-
General - no acute distress
Abdomen - no left CVAT, incisional pain
Counseling
-
Will follow up as outpatient
[2023-10-31] MEDS: LOVENOX 40 MG SC (17:17)
--- NOTE | 2023-10-31 17:23 | W.PN.HOSP.TC ---
Today's Communication/Plan
-
Continue antibiotics
Assessment / Plan
Assessment / Plan
Physical Exam
General: Well Developed, Well Nourished and No Apparent Distress
HEENT: Normocephalic, Moist mucous membranes and Atraumatic
Respiratory: Clear
Cardiac: S1/S2 and Regular Rhythm; Tachycardia
GI: Soft, Non Distended, Normal Bowel Sounds and Tender. Surgical drain in place.
Musculoskeletal: No Cyanosis and No Edema
Skin: Warm. Dry.
Neuro: AAO x 3 and Nonfocal/grossly intact
Psych: Calm
Assessment/Plan
# Right lower quadrant pain associated fever and chills likely from perforated appendicitis s/p laparoscopic appendectomy and drainage of intra-abdominal abscess for perforated
appendicitis
# Sepsis with leukocytosis, fever and tachycardia
# Intra-abdominal abscess
# Acute appendicitis with perforation
-UA negative
-Blood culture sent from ER
-Continue IV Zosyn (Today is Day 2)
-Surgery was on 10/30/23
-Clear Liquids for diet
-IV Fluids continued
-ID consulted, appreciate evaluation and recommendations
-Surgery consulted, appreciate evaluation and recommendations
#Distal Left Ureter Stone with associated left-sided hydronephrosis
-Urology consulted, appreciate evaluation and recommendations: stone surgery after patient has recovered from this hospitalization -- there are no indications for urgent intervention at this time
#Type 2 Diabetes Mellitus
-sliding scale
-hold Jardiance glimepiride and Trulicity.
# DVT prophylaxis
-SCDs
# CODE STATUS
-Full code
Anticipated Discharge: 24 - 48 hours
Subjective/Interval History
-
Date of Service: October 31, 2023
Patient was seen and examined. A Khalif eyeglass assembler -- Bonnie (eyeglass assembler ID#: [id number]) -- translated from Mosotho to Israeli, and patient reported he was feeling better today.
Objective Data
-
Labs:
Laboratory Results
10/31/23
05:38
WBC 16.6 H
Hgb 13.7
Hct 38.6 L
Plt Count 163 D
Vital Signs:
Vital Signs
Temp Pulse Resp BP Pulse Ox
99.3 F 67 16 118/65 98
10/31/23 15:40 10/31/23 15:40 10/31/23 15:40 10/31/23 15:40 10/31/23 15:40
I&O
10/30/23 10/31/23 11/01/23
06:59 06:59 06:59
Intake Total 100 / 100
Output Total 1300 / 1300
Balance -1200 / -1200
[2023-10-31 17:31] LABS: Glucose - Point of Care 304 mg/dl (70-99)
[2023-10-31] MEDS: NOVOLOG FLEXPEN-LOW RESISTANCE 4 UNITS SC (17:35)
[2023-10-31 21:28] LABS: Glucose - Point of Care 243 mg/dl (70-99)
[2023-10-31] MEDS: MELATONIN 5 MG PO (21:39)
[2023-11-01 03:30] VITALS: BP 108/59
[2023-11-01] MEDS: TYLENOL PO ×2 (03:30→23:54)
[2023-11-01] MEDS: ZOSYN 50 IV ×4 (05:01→23:47)
[2023-11-01 06:52] LABS: Hematocrit 34.2 % (39.0-52.0); Hemoglobin 12.4 g/dL (13.0-18.0); Mean Corp Hgb Conc. 36.3 g/dL (33.0-37.0); Mean Corpuscular Hgb 32.3 pg (27.0-31.0); Mean Corpuscular Volume 89.1 fL (80.0-94.0); Mean Platelet Volume 10.7 fL (7.4-10.4); Platelet Count 162 10^3/uL (130-400); Red Blood Cell Count 3.84 10^6/uL (4.70-6.10)
[2023-11-01 07:32] LABS: Glucose - Point of Care 216 mg/dl (70-99)
[2023-11-01 07:35] VITALS: BP 139/86
[2023-11-01] MEDS: FLOMAX 0.4 MG PO (08:28)
[2023-11-01] MEDS: TYLENOL 650 MG PO ×4 (08:28→20:15)
[2023-11-01] MEDS: NOVOLOG FLEXPEN-LOW RESISTANCE 2 UNITS SC (08:28)
--- NOTE | 2023-11-01 09:39 | W.PN.GS2 ---
Addendum entered and electronically signed by Vimal Villeda MD 11/01/23 10:52:
I saw and examined the patient.
The Roller Shop Utility Worker's note was reviewed and I agree with the note.
Comment: Doing well. Passing flatus, denies n/v. Exam approp, incisions cdi. PLan: cont IV abx, adv to LRD
Original Note:
Today's Communication / Plan
-
Advance diet
Assessment / Plan
-
63M who is POD #2 s/p laparoscopic appendectomy and drainage of intra-abdominal abscess for perforated appendicitis
No further fevers since OR, VSS
Bowel function returning
Leukocytosis trending down
Plan:
Advance to LRD
Cont abx
PRN pain meds and antiemetics
Ambulate/OOB
C/W FLAKITO drain
DVT ppx
Tentatively ready for D/C tomorrow pending dietary tolerance, would continue IV abx for at least another 24 hours prior to transitioning to PO
Subjective Data
-
Date of Service: November 01, 2023
Patient seen and examined at bedside with Dr. Villeda. Passing flatus. Pain is minimal. Denies n/v. Tolerating clears.
Objective Data
-
Intake and Output
10/31/23 11/01/23 11/02/23
06:59 06:59 06:59
Intake Total 100 / 100 240 / 240
Output Total 1300 / 1300 1210 / 1210
Balance -1200 / -1200 -970 / -970
Intake:
Oral fluids 240 / 240
IV fluids (Total) 100 / 100
normosol 100 / 100
Output:
Drain Output (Total) 100 / 100 60 / 60
Left Kapil-Connelly 100 / 100 60 / 60
Urine, Voided 1200 / 1200 1150 / 1150
Vital Signs
Temp Pulse Resp BP Pulse Ox
97.1 F 85 18 139/86 96
11/01/23 07:35 11/01/23 07:35 11/01/23 07:35 11/01/23 07:35 11/01/23 07:35
Lab Results
11/01/23 05:04
Calcium 9.8 mg/dl (8.4-10.2) 10/30/23 13:21
Total Bilirubin 3.4 mg/dl (0.2-1.3) H 10/30/23 13:21
AST 48 U/L (17-59) 10/30/23 13:21
ALT 36 U/L (0-50) 10/30/23 13:21
Alkaline Phosphatase 56 U/L (38-126) 10/30/23 13:21
Total Protein 7.7 g/dl (6.3-8.2) 10/30/23 13:21
Albumin 4.9 g/dl (3.5-5.0) 10/30/23 13:21
Physical Exam
-
Gen: NAD
Abd: soft, approp ttp, incisions cdi, drain ss
[2023-11-01 10:00] LABS: Blood Urea Nitrogen 30 mg/dl (9-20); Calcium 7.8 mg/dl (8.4-10.2); Carbon Dioxide 25 mmol/L (22-30); Chloride 104 mmol/L (98-107); Estimated Creatinine Clearance 78 ml/min; Glucose 154 mg/dl (70-99); Magnesium 2.3 mg/dl (1.6-2.3); Sodium 139 mmol/L (135-145); eGFR > 60.00
[2023-11-01 11:11] VITALS: BP 120/67
[2023-11-01 11:38] LABS: Glucose - Point of Care 173 mg/dl (70-99)
[2023-11-01] MEDS: NOVOLOG FLEXPEN-LOW RESISTANCE 1 UNITS SC ×2 (12:35→17:08)
--- NOTE | 2023-11-01 13:11 | W.PN.ID1 ---
Date of Service
Date of Service: November 01, 2023
Today's Communication
- Continue with piperacillin-tazobactam (day 3).
Assessment / Plan
Intra-abdominal abscess
Acute appendicitis with perforation
- Status-post laparoscopic appendectomy, drainage of intra-abdominal abscess on 10-30-23
- 10/30 FLAKITO culture gram stain many wbc no organisms - culture in progress
- Continue with piperacillin-tazobactam (day 3).
Conditions prior to presentation:
Type II diabetes mellitus
Benign prostatic hyperplasia
Chief Complaint
-: Other (perforated appendix)
Subjective / Review of Systems
afebrile
passing flatus
Vital Signs / Physical Exam
Vital Signs
Vital Signs
Temp Pulse Resp BP Pulse Ox
98.8 F 66 19 120/67 93
11/01/23 11:11 11/01/23 11:11 11/01/23 11:11 11/01/23 11:11 11/01/23 11:11
Physical Exam
Constitutional: No Acute Distress
Cardiovascular: Regular Rate and S1/S2; Negative Murmur or Rub
Pulmonary: Clear and Symmetric; Negative Wheezes or Rales
Gastrointestinal: Soft, Non Tender, Non Distended, Normal Bowel Sounds and Other (drain with serousanguinous fluid)
Skin: Warm and Dry; Negative Rash or Jaundice
Objective Data
Lab Data
Lab Results
11/01/23 05:04
11/01/23 08:40
Estimated Creat Clear 78 ml/min 11/01/23 08:40
Total Bilirubin 3.4 mg/dl (0.2-1.3) H 10/30/23 13:21
AST 48 U/L (17-59) 10/30/23 13:21
ALT 36 U/L (0-50) 10/30/23 13:21
Alkaline Phosphatase 56 U/L (38-126) 10/30/23 13:21
Most recent labs reviewed.
Micro Results:
10/31/23 14:34 Wound Culture - Preliminary
Kapil Connelly Gram Stain - Preliminary many wbc no organisms
10/31/23 00:37 Blood Culture - Preliminary
Blood/Venous No Growth in 24 hours- Final report to follow
10/30/23 18:02 Blood Culture - Preliminary
Blood/Venous No Growth in 24 hours- Final report to follow
[2023-11-01 15:35] VITALS: BP 111/64
--- NOTE | 2023-11-01 16:24 | CM ---
CM reviewed chart, patient remains on IV antibiotics, likely transition to oral upon discharge. Per Hospitalist, likely for discharge tomorrow. CM will continue to follow for all discharge planning needs.
Plan; home no needs likely, watch for VN needs upon discharge.
[2023-11-01 16:39] LABS: Glucose - Point of Care 187 mg/dl (70-99)
[2023-11-01] MEDS: LOVENOX 40 MG SC (17:08)
[2023-11-01 19:12] VITALS: BP 117/61
[2023-11-01 21:18] LABS: Glucose - Point of Care 159 mg/dl (70-99)
--- NOTE | 2023-11-01 21:30 | PTCARENOTE ---
Pt notified RN that his brought him 1 Advil tablet that he took at 2100 as he states they help him sleep. RN informed and educated pt that he can't be taking medications brought from home that have not been added to their MAR. RN ensured pt did
not have any more Advil with him and that pt does not take or have bring him any medications without informing medical staff.
[2023-11-01] MEDS: MELATONIN PO (22:08)
[2023-11-01 23:03] VITALS: BP 117/59
[2023-11-02] MEDS: TYLENOL PO ×2 (03:12→23:49)
[2023-11-02 03:20] VITALS: BP 143/75
[2023-11-02] MEDS: ZOSYN 50 IV ×4 (05:40→23:47)
[2023-11-02 07:21] LABS: Glucose - Point of Care 156 mg/dl (70-99)
[2023-11-02 07:44] VITALS: BP 140/73
[2023-11-02] MEDS: NOVOLOG FLEXPEN-LOW RESISTANCE 1 UNITS SC (08:05)
[2023-11-02] MEDS: TYLENOL 650 MG PO ×4 (08:06→21:35)
[2023-11-02] MEDS: FLOMAX 0.4 MG PO (08:06)
[2023-11-02 08:35] LABS: Hemoglobin 14.5 g/dL (13.0-18.0); Mean Corp Hgb Conc. 36.3 g/dL (33.0-37.0); Mean Corpuscular Hgb 32.8 pg (27.0-31.0); Mean Corpuscular Volume 90.5 fL (80.0-94.0); Mean Platelet Volume 10.4 fL (7.4-10.4); Platelet Count 194 10^3/uL (130-400); Red Blood Cell Count 4.42 10^6/uL (4.70-6.10); Red Cell Dist. Width 12.5 % (11.5-14.5); White Blood Cell Count 8.6 10^3/uL (4.8-10.8)
[2023-11-02 11:28] VITALS: BP 143/72
[2023-11-02 11:40] LABS: Glucose - Point of Care 215 mg/dl (70-99)
[2023-11-02] MEDS: NOVOLOG FLEXPEN-LOW RESISTANCE 2 UNITS SC (12:49)
--- NOTE | 2023-11-02 13:31 | W.PN.GS2 ---
Addendum entered and electronically signed by Vimal Villeda MD 11/02/23 15:04:
I saw and examined the patient.
The Director Of Analytics's note was reviewed and I agree with the note.
Comment: Continues improving, pain improving. Jeimy diet. Ambulating. Exam approp, drain ss - removed at bedside. Abx per ID. OK for DC home from surgery standpoint.
Original Note:
Today's Communication / Plan
-
dispo planning
Assessment / Plan
-
63M who is POD #3 s/p laparoscopic appendectomy and drainage of intra-abdominal abscess for perforated appendicitis
No further fevers since OR, VSS
Bowel function returning
Leukocytosis trending down
Plan:
Continue diet
Cont abx as per ID
PRN pain meds
Ambulate/OOB
Removed FLAKITO drain in anticipation of discharge
DVT ppx
OK for d/c from surgical standpoint
Subjective Data
-
Date of Service: November 02, 2023
Patient seen and examined at bedside with Dr. Villeda. Pain is minimal. No n/v. Tolerating diet. Questions addressed.
Objective Data
-
Intake and Output
11/01/23 11/02/23 11/03/23
06:59 06:59 06:59
Intake Total 240 / 240 460 / 460
Output Total 1210 / 1210 700 / 700
Balance -970 / -970 -240 / -240
Intake:
Oral fluids 240 / 240 360 / 360
IV piggybacks 100 / 100
Output:
Drain Output (Total) 60 / 60
Left Kapil-Connelly 60 / 60
Urine, Voided 1150 / 1150 700 / 700
Other:
Number of approximated MODERATE 3
amounts of urine
Vital Signs
Temp Pulse Resp BP Pulse Ox
99.3 F 60 16 143/72 96
11/02/23 11:28 11/02/23 11:28 11/02/23 11:28 11/02/23 11:28 11/02/23 11:28
Lab Results
11/02/23 07:33
11/01/23 08:40
Calcium 7.8 mg/dl (8.4-10.2) L D 11/01/23 08:40
Magnesium 2.3 mg/dl (1.6-2.3) 11/01/23 08:40
Total Bilirubin 3.4 mg/dl (0.2-1.3) H 10/30/23 13:21
AST 48 U/L (17-59) 10/30/23 13:21
ALT 36 U/L (0-50) 10/30/23 13:21
Alkaline Phosphatase 56 U/L (38-126) 10/30/23 13:21
Total Protein 7.7 g/dl (6.3-8.2) 10/30/23 13:21
Albumin 4.9 g/dl (3.5-5.0) 10/30/23 13:21
Physical Exam
-
Gen: NAD
Abd: soft, approp ttp, incisions cdi, drain ss (removed)
--- NOTE | 2023-11-02 16:22 | W.PN.HOSP.TC ---
Today's Communication/Plan
-
Await sensitivities of drain cultures -- this should be available tomorrow morning as per Microbiology department
Appreciate ID and surgery
Anticipate discharge tomorrow once culture sensitivities are available
Assessment / Plan
Assessment / Plan
Physical Exam
General: Well Developed, Well Nourished and No Apparent Distress
HEENT: Normocephalic, Moist mucous membranes and Atraumatic
Respiratory: Clear
Cardiac: S1/S2 and Regular Rhythm; Tachycardia
GI: Soft, Non Distended, Normal Bowel Sounds and Tender. Surgical drain in place (drain removed later in the day on 11/02/23)
Musculoskeletal: No Cyanosis and No Edema
Skin: Warm. Dry.
Neuro: AAO x 3 and Nonfocal/grossly intact
Psych: Calm
Assessment/Plan
# Right lower quadrant pain associated fever and chills likely from perforated appendicitis s/p laparoscopic appendectomy and drainage of intra-abdominal abscess for perforated
appendicitis
# Sepsis with leukocytosis, fever and tachycardia
# Intra-abdominal abscess
# Acute appendicitis with perforation
-UA negative
-Blood culture sent from ER
-Continue IV Zosyn (Today is Day 4)
-Surgery was on 10/30/23
-Diet was advanced to low residue diet
-Status post IV fluids
-ID consulted, appreciate evaluation and recommendations
-Drain removed on 11/02/23
-Surgery consulted, appreciate evaluation and recommendations
#Distal Left Ureter Stone with associated left-sided hydronephrosis
-Urology consulted, appreciate evaluation and recommendations: stone surgery after patient has recovered from this hospitalization -- there are no indications for urgent intervention at this time
#Type 2 Diabetes Mellitus
-sliding scale
-hold Jardiance glimepiride and Trulicity.
# DVT prophylaxis
-Lovenox
# CODE STATUS
-Full code
Anticipated Discharge: Within 24 hours
Subjective/Interval History
-
Date of Service: November 02, 2023
Patient was seen and examined. He reported no new symptoms or complaints. Translation from Togolese to Tanzanian was provided by [place] (Rn Digestive ID#: [id number]).
Objective Data
-
Labs:
Laboratory Results
11/02/23
07:33
WBC 8.6
Hgb 14.5
Hct 40.0
Plt Count 194
Vital Signs:
Vital Signs
Temp Pulse Resp BP Pulse Ox
99.3 F 60 16 143/72 96
11/02/23 11:28 11/02/23 11:28 11/02/23 11:28 11/02/23 11:28 11/02/23 11:28
I&O
11/01/23 11/02/23 11/03/23
06:59 06:59 06:59
Intake Total 240 / 240 460 / 460
Output Total 1210 / 1210 700 / 700
Balance -970 / -970 -240 / -240
[2023-11-02 16:48] LABS: Glucose - Point of Care 146 mg/dl (70-99)
[2023-11-02] MEDS: NOVOLOG FLEXPEN-LOW RESISTANCE SC (17:02)
[2023-11-02 17:09] LABS: Albumin 3.5 g/dl (3.5-5.0)
[2023-11-02] MEDS: LOVENOX 40 MG SC (17:10)
[2023-11-02 19:25] VITALS: BP 130/64
[2023-11-02 21:36] LABS: Glucose - Point of Care 219 mg/dl (70-99)
[2023-11-02] MEDS: MELATONIN 5 MG PO (21:36)
[2023-11-02 23:30] VITALS: BP 134/79
[2023-11-02] MEDS: FLUSH (NSS) 2 FLUSH IV (23:47)
[2023-11-03 03:50] VITALS: BP 157/82
[2023-11-03] MEDS: TYLENOL PO (04:00)
[2023-11-03] MEDS: ZOSYN 50 IV ×2 (05:11→11:29)
[2023-11-03 07:07] VITALS: BP 136/72
[2023-11-03 07:20] LABS: Glucose - Point of Care 187 mg/dl (70-99)
[2023-11-03] MEDS: TYLENOL 650 MG PO ×2 (07:39→11:30)
[2023-11-03] MEDS: NOVOLOG FLEXPEN-LOW RESISTANCE 1 UNITS SC (07:39)
[2023-11-03] MEDS: FLOMAX 0.4 MG PO (07:39)
--- NOTE | 2023-11-03 08:22 | W.PN.ID1 ---
Date of Service
Date of Service: November 03, 2023
Today's Communication
Dc home today. See below.
Assessment / Plan
Intra-abdominal abscess
Acute appendicitis with perforation
- Status-post laparoscopic appendectomy, drainage of intra-abdominal abscess on 10-30-23
- No intra-op culture sent.
- 10/30 FLAKITO culture Pseudomonas, E. coli (Of note: FLAKITO drain culture may not reflect intra-abd organisms).
- Can transition piperacillin-tazobactam (day 4) to cipro 750mg po bid and Augmentin 875mg po bid through 11/09/2023.
Conditions prior to presentation:
Type II diabetes mellitus
Benign prostatic hyperplasia
Chief Complaint
-: Other (perforated appendix)
Subjective / Review of Systems
Feels well. No abd pain.
Vital Signs / Physical Exam
Vital Signs
Vital Signs
Temp Pulse Resp BP Pulse Ox
98.5 F 64 18 136/72 97
11/03/23 07:07 11/03/23 07:07 11/03/23 07:07 11/03/23 07:07 11/03/23 07:07
Physical Exam
Constitutional: No Acute Distress
Cardiovascular: Regular Rate and S1/S2
Gastrointestinal: Soft, Non Tender and Non Distended
Objective Data
Lab Data
Estimated Creat Clear 78 ml/min 11/01/23 08:40
Total Bilirubin 3.4 mg/dl (0.2-1.3) H 10/30/23 13:21
AST 48 U/L (17-59) 10/30/23 13:21
ALT 36 U/L (0-50) 10/30/23 13:21
Alkaline Phosphatase 56 U/L (38-126) 10/30/23 13:21
Most recent labs reviewed.
Micro Results:
10/31/23 14:34 Wound Culture - Final
Kapil Connelly Pseudomonas aeruginosa
Escherichia coli
Gram Stain - Final
10/31/23 00:37 Blood Culture - Preliminary
Blood/Venous No Growth in 72 hours- Final report to follow
10/30/23 18:02 Blood Culture - Preliminary
Blood/Venous No Growth in 72 hours- Final report to follow
Care Review
Plan reviewed with: Physician (Dr. Marks)
[2023-11-03 08:25] LABS: % Basophils 0.4 % (0-2); % Eosinophils 2.2 % (0-6); % Immature Granulocytes 0.5 % (0-0.5); % Lymphocytes 23.1 % (20.5-51.1); % Monocytes 7.8 % (1.7-9.3); Absolute Eosinophils 0.2 10^3/uL (0-0.7); Absolute Immature Granulocytes 0.1 10^3/uL (0-0.05); Absolute Lymphocytes 2.2 10^3/uL (1.2-3.4); Absolute Monocytes 0.7 10^3/uL (0.1-0.6); Absolute Neutrophils 6.3 10^3/uL (1.4-6.5); Hematocrit 38.3 % (39.0-52.0); Mean Corp Hgb Conc. 36.6 g/dL (33.0-37.0); Mean Corpuscular Volume 90.3 fL (80.0-94.0); Mean Platelet Volume 10.6 fL (7.4-10.4); Nucleated Red Blood Cells % 0 % (-); Platelet Count 205 10^3/uL (130-400); Red Blood Cell Count 4.24 10^6/uL (4.70-6.10); Red Cell Dist. Width 12.5 % (11.5-14.5); White Blood Cell Count 9.5 10^3/uL (4.8-10.8)
[2023-11-03 08:28] LABS: Albumin 3.2 g/dl (3.5-5.0); Blood Urea Nitrogen 20 mg/dl (9-20); Calcium 8.3 mg/dl (8.4-10.2); Carbon Dioxide 21 mmol/L (22-30); Chloride 104 mmol/L (98-107); Estimated Creatinine Clearance 98 ml/min; Glucose 170 mg/dl (70-99); Potassium 4.2 mmol/L (3.5-5.1); Sodium 138 mmol/L (135-145); eGFR > 60.00
[2023-11-03 10:58] LABS: Glucose - Point of Care 163 mg/dl (70-99)
[2023-11-03 11:07] VITALS: BP 136/73
--- NOTE | 2023-11-03 12:42 | W.PN.HOSP.TC ---
Today's Communication/Plan
-
Discharge today
Assessment / Plan
Assessment / Plan
Physical Exam
General: Well Developed, Well Nourished and No Apparent Distress
HEENT: Normocephalic, Moist mucous membranes and Atraumatic
Respiratory: Clear
Cardiac: S1/S2 and Regular Rhythm; Tachycardia
GI: Soft, Non Distended, Normal Bowel Sounds and Tender. Surgical drain in place (drain removed later in the day on 11/02/23)
Musculoskeletal: No Cyanosis and No Edema
Skin: Warm. Dry.
Neuro: AAO x 3 and Nonfocal/grossly intact
Psych: Calm
Assessment/Plan
# Right lower quadrant pain associated fever and chills likely from perforated appendicitis s/p laparoscopic appendectomy and drainage of intra-abdominal abscess for perforated
appendicitis
# Sepsis with leukocytosis, fever and tachycardia
# Intra-abdominal abscess
# Acute appendicitis with perforation
-UA negative
-Blood culture sent from ER
-Continue IV Zosyn inpatient
-Surgery was on 10/30/23
-Diet was advanced to low residue diet
-Status post IV fluids
-ID consulted, appreciate evaluation and recommendations: on discharge, Cipro 750mg po bid and Augmentin 875mg po bid through 11/09/2023
-Drain removed on 11/02/23
-Surgery consulted, appreciate evaluation and recommendations
#Distal Left Ureter Stone with associated left-sided hydronephrosis
-Urology consulted, appreciate evaluation and recommendations: stone surgery after patient has recovered from this hospitalization -- there are no indications for urgent intervention at this time
-Follow-up with urologist outpatient
#Type 2 Diabetes Mellitus
-sliding scale
-hold Jardiance
-Resume home glimepiride and Trulicity.
# DVT prophylaxis
-Lovenox
# CODE STATUS
-Full code
More than 30 minutes spent in discharge including
Final examination of the patient
Summarizing hospital stay
Instructions for continuing care to all relevant caregivers
Preparation of discharge records, prescriptions, and referral forms
Total time spent (in minutes): 37
Anticipated Discharge: Today
Subjective/Interval History
-
Date of Service: November 03, 2023
Patient was seen and examined. Translater Rubin (ID number [id number]) translated from Spanish to German. Patient denied any new significant symptoms or complaints.
Objective Data
-
Labs:
Laboratory Results
11/03/23
06:12
WBC 9.5
Hgb 14.0
Hct 38.3 L
Plt Count 205
Sodium 138
Potassium 4.2
Chloride 104
Carbon Dioxide 21 L
BUN 20
Creatinine 0.8
Glucose 170 H
Calcium 8.3 L
Vital Signs:
Vital Signs
Temp Pulse Resp BP Pulse Ox
98.0 F 50 18 136/73 97
11/03/23 11:07 11/03/23 11:07 11/03/23 11:07 11/03/23 11:07 11/03/23 11:07
I&O
11/02/23 11/03/23 11/04/23
06:59 06:59 06:59
Intake Total 460 / 460 1280 / 1280
Output Total 700 / 700 375 / 375
Balance -240 / -240 905 / 905
--- NOTE | 2023-11-03 12:58 | W.DCSUMMARY ---
Discharge Summary
Discharge Data
Date of Admission: 10/30/23
Date of Discharge: 11/03/23
Total time spent discharging patient (in min): 37
-
Pending Results: No
Hospital Course
63 y/o male with past medical history of type 2 diabetes mellitus and kidney stones presented for evaluation of right-sided abdominal pain. The pain had been there for about a week prior to presentation, but a couple of days prior to presentation,
it started to get worse. Patient reported chills, nausea and diarrhea. Patient was found to be have fever and tachycardia, and started on intravenous fluid and intravenous antibiotics.
CT Abdomen Pelvis showed, as per radiologist's report:
'IMPRESSION:
Findings consistent with perforated appendicitis with small volume pneumoperitoneum. There is no discrete periappendiceal collection.
8 mm obstructing stone within the distal left ureter with associated left-sided hydronephrosis.'
General surgery, infectious disease and urology were consulted. On October 30, 2023, patient had a laparoscopic appendectomy and drainage of intra-abdominal abscess for his perforated appendicitis.
For patient's ureteral stone, urology mentioned they would advise stone surgery after patient has recovered from his current hospitalization, and that there were no indications for urgent intervention at the time.
Patient's FLAKITO drain cultures showed Pseudomonas, E. coli but it was noted that FLAKITO drain cultures may not reflect intra-abdominal organisms. Patient's surgical drain was removed and he stable for discharge on oral antibiotics.
Discharge Plan
-
Patient Disposition: Home (Routine Discharge)
Discharge Diagnosis/Procedures: # Laparoscopic appendectomy and drainage of intra-abdominal abscess
# Right lower quadrant pain associated fever and chills likely from perforated appendicitis s/p laparoscopic appendectomy and drainage of
intra-abdominal abscess for perforated appendicitis
# Sepsis with leukocytosis, fever and tachycardia
# Intra-abdominal abscess
# Acute appendicitis with perforation
# Distal Left Ureter Stone with associated left-sided hydronephrosis
# Type 2 Diabetes Mellitus
Condition: Good
Diet: Low Residue
Activity: No strenuous activity
Additional Activity: No heavy lifting (>20 lbs) or strenuous activities for 2 weeks postoperatively
Driving Restrictions: No driving if too sore or taking narcotics
Bathing Restrictions: OK to Shower
Blood Work: Recheck CBC, CMP and Magnesium with your primary care provider's office in 2 to 3 days.
Wound Care: Keep incisions clean and dry. Glue with about 2 to 3 weeks. Stitches will dissolve.
Activity Restrictions/Additional Instructions:
Call for fevers (>100.5), worsening abdominal pain, nausea or vomiting
Referrals:
Carlos Thomas MD [Active] - in two to four weeks
Antonio Shepherd MD [Active] - in one to two weeks
Benjamín Avelar DO [Family Provider] - in less than 1 week
Additional Discharge Medication Instructions: Amoxicillin-Clavulanate and Ciprofloxacin are new medications.
Jardiance and Trulicity are on hold -- please discuss (as soon as possible this week) with your primary care physician regarding when you should resume these medications.
Prescriptions:
New
ciprofloxacin HCl 750 mg tablet
750 mg PO BID Qty: 13 0RF
amoxicillin-pot clavulanate 875-125 mg tablet
1 tab PO BID Qty: 13 0RF
Continued
glimepiride 2 mg tablet
2 mg PO BID
tamsulosin 0.4 mg capsule
0.4 mg PO DAILY
Held
Jardiance 25 mg tablet
25 mg PO DAILY
Hold Instructions: Resume on 11/07/23. Discuss with your primary care physician regarding if and when to resume this medication.
Trulicity 0.75 mg/0.5 mL pen injector
0.5 mg SC WEEKLY
Hold Instructions: Resume on 11/06/23. Discuss with your primary care physician regarding if and when to resume this medication.
Discharge Orders:
Discharge Patient (As Directed); Ordered 11/03/23
Ordered By: Mustapha Marks
Discharge Date and Time
Discharge Date/Time: 11/03/23 14:40
Print Language: WELSH
== END 2023-11-03 14:40 | disposition home or self-care (01) | DRG 853 ==
LOC: 4 WEST ACU 20:41
PROVIDERS: Physician Assistant; Registered Nurse; ADMITTING PHYSICIAN Hospitalist; CONSULT PHYSICIAN Internal Medicine Infectious Disease; CONSULT PHYSICIAN Specialist; CONSULT PHYSICIAN Surgery; EMERGENCY PHYSICIAN Emergency Medicine; FAMILY PHYSICIAN Family Medicine
PROC: 0DTJ4ZZ Resection of Appendix, Percutaneous Endoscopic Approach (ICD-10-PCS; 2023-10-30)
PROC: 0W9F40Z Drainage of Abdominal Wall with Drainage Device, Percutaneous Endoscopic Approach (ICD-10-PCS; 2023-10-30)
DX: A41.9 Sepsis, unspecified organism (principal); K35.33 Acute appendicitis with perforation, localized peritonitis, and gangrene, with abscess; N13.2 Hydronephrosis with renal and ureteral calculous obstruction; E11.9 Type 2 diabetes mellitus without complications
CPT/HCPCS: 88304; 74177; 80048; 80053; 81003; 82010; 82040; 82805; 82962; 83036; 83690; 83735; 85025; 85027; 87040; 87070; 87077; 87186; 87205; 93005; 96374; 96375; 99285; C1776; Q9967

== ENCOUNTER 2023-12-05 06:31 | Day surgery (SDC) | payer OTHER, SELFPAY ==
[2023-12-05 09:45] VITALS: BMI 28.5
[2023-12-05 09:46] LABS: Glucose - Point of Care 154 mg/dl (70-99)
[2023-12-05 09:50] VITALS: BP 136/80
[2023-12-05 10:01] VITALS: BMI 28.5
[2023-12-05] MEDS: NORMOSOL-R/PLASMALYTE-A 1000 IV (10:08)
[2023-12-05] MEDS: Pyridium 200 MG PO (10:09)
[2023-12-05 11:50] VITALS: BP 131/81; BP 136/80
[2023-12-05 12:00] VITALS: BP 131/81
[2023-12-05 12:07] LABS: Glucose - Point of Care 143 mg/dl (70-99)
[2023-12-05 12:15] VITALS: BP 117/73
[2023-12-05 12:30] VITALS: BP 120/73
[2023-12-05 12:49] VITALS: BP 118/65
== END 2023-12-05 13:31 | disposition home or self-care (01) ==
LOC: SDS 06:31
PROVIDERS: ATTENDING PHYSICIAN Specialist
DX: N13.2 Hydronephrosis with renal and ureteral calculous obstruction (principal)
CPT/HCPCS: 52356; 74018; 76000; 82365; 82962; C2617